=== PATIENT | female | born 1995 | race Two or more races ===

== ENCOUNTER → 2016-08-19 | Outpatient (CLI) | payer MEDICAID ==
--- NOTE | 2016-08-19 15:11 | US ---
"Ultrasound Obstetric Follow Up Indication: Small for dates. The estimated gestational age by LMP is 39 weeks and 6 days yielding a n EDC of August 20, 2016. Comparison: April 2016 Findings: Number: 1 Presentation: Vertex Placental Location: Posterior Cervix not visualized Amniotic MVP: 5 cm BIOMETRY: Biparietal Diameter: 94.31 mm 38 weeks, 6 days Head Circumference: 337.53 mm 38 weeks, 6 days Abdominal Circumference: 335.71 mm 37 weeks, 4 days Femur Length: 75.51 mm 38 weeks, 5 days Humerus Length: 65.46 mm 38 weeks, 0 days HC/AC: 1.01 (0.87-1.06) FL/BPD: 80% FL/AC: 22% Average Ultrasound Age: 38 weeks, 3 days EDC based on today's average ultrasound age: August 30, 2016 Estimated weight is 3369 gms +/- 492 gms. The estimated weight is at the 31 % based on pr evious dating. ANATOMY: Previous evaluated. FHR 130 bpm. Grade 3-4 placenta. Impression: 1. Living meneses in vertex presentation. 2. EFW 3369 g. 3. LMP weight percentile 31% 4. Please see above findings. A Call Requested message has been communicated to GERMAN Mckeon via the [employer] Result system on 08/19/2016 15:09, Message ID [id number]."
== END ==
LOC: FIMAGING 13:41
PROVIDERS: ATTEND Physician Assistant
DX: O36.5930 Maternal care for other known or suspected poor fetal growth, third trimester, not applicable or unspecified (principal); Z3A.39 39 weeks gestation of pregnancy

== ENCOUNTER 2016-11-14 15:49 | Emergency (ER) | payer MEDICAID ==
[2016-11-14 16:03] VITALS: RESP 16; O2SAT 97
--- NOTE | 2016-11-14 16:22 | EDPHY ---
H & P Time Seen by Provider: 11/14/16 16:12 HPI/ROS: CHIEF COMPLAINT: Chest pain. HISTORY OF PRESENT ILLNESS: The patient is a 21-year-old female who presents with constant chest pain since yesterday. The pain radiates to her right axillary region. She reports that she has had intermittent hemoptysis for 8 months but the pain is a new symptom. She has seen her PCP at [facility] for the hemoptysis but has had no tests or imaging done. She denies fever. She moved here from [facility] 14 months ago. Her grandfather has had tuberculosis but it is unclear if she has ever been exposed. History somewhat limited due to language barrier. REVIEW OF SYSTEMS: A complete 10-point review of systems was performed and is negative except for those items mentioned in the HPI. Past Medical/Surgical History: Denies. Social History: Nonsmoker, from [facility]. PCP: [facility] Smoking Status: Never smoked Physical Exam: General Appearance: Alert, no distress Eyes: Pupils equal and round, no conjunctival pallor or injection ENT, Mouth: Mucous membranes moist Neck: Normal inspection Respiratory: Lungs are clear to auscultation Cardiovascular: Regular rate and rhythm Gastrointestinal: Abdomen is soft and non-tender Neurological: A&O, nonfocal, normal gait Skin: Warm and dry, no rash Extremities: Nontender, no pedal edema Psychiatric: Mood and affect normal Constitutional: Initial Vital Signs Temperature (C) 36.3 C 11/14/16 16:01 Heart Rate 80 11/14/16 16:01 Respiratory Rate 16 11/14/16 16:01 Blood Pressure 103/66 11/14/16 16:01 O2 Sat (%) 97 11/14/16 16:01 O2 Delivery Mode Room Air Allergies/Adverse Reactions: No Known Allergies Allergy (Unverified 11/14/16 16:00) Home Medications: Medication Instructions Recorded NK [No Known Home Meds] 11/14/16 Medical Decision Making - Diagnostics EKG Interpretation: EKG interpreted by me reveals normal sinus rhythm, normal axis, normal intervals , ST and T segments normal. Interpretation: normal EKG Imaging Results: Imaging Impressions Chest X-Ray 11/14/16 16:12 Impression: Normal chest x-ray. Chest/Thorax CTA 11/14/16 17:48 Impression: 1. No evidence of pulmonary embolus using CT protocol. 2. Minimal right pleural effusion. Findings discussed with Amparo Arshad M.D. at 18:43 hour, 11/14/2016. Imaging: I viewed and interpreted images myself ED Course/Re-evaluation: 21-year-old otherwise healthy female presents with 8 months of intermittent hemoptysis and central chest pain that began yesterday and has been constant since. She denies fever. This patient moved from [facility] 14 months ago. She does admit a family history of tuberculosis in her grandfather but it is unclear if she was ever exposed. An IV was established and labs ordered. Chest x-ray ordered. I independently reviewed the patient's chest x-ray on the PACS system. My interpretation: no acute cardiopulmonary disease. Patient's d-dimer elevated at 0.62. Chest CT ordered. 1843: CT results conveyed to me by the radiologist as small pleural effusion. Please see Imaging results section for official report. She will be discharged with pulmonology follow up. Return to ED precautions were discussed with her. Differential Diagnosis: Differential diagnosis includes though it is not limited to pneumonia, pneumothorax, pulmonary embolism, aortic dissection, pericarditis, acute coronary syndrome. - Data Points Laboratory Results: Laboratory Results 11/14/16 16:45 11/14/16 16:45 11/14/16 11/14/16 11/14/16 16:45 16:45 16:45 WBC 6.65 10^3/uL 10^3/uL (3.80-9.50) RBC 4.26 10^6/uL 10^6/uL (4.18-5.33) Hgb 13.5 g/dL g/dL (12.6-16.3) Hct 36.9 % L % (38.0-47.0) MCV 86.6 fL fL (81.5-99.8) MCH 31.7 pg pg (27.9-34.1) MCHC 36.6 g/dL g/dL (32.4-36.7) RDW 12.2 % % (11.5-15.2) Plt Count 271 10^3/uL 10^3/uL (150-400) MPV 9.6 fL fL (8.7-11.7) Neut % (Auto) 41.6 % % (39.3-74.2) Lymph % (Auto) 46.5 % H % (15.0-45.0) [place] % (Auto) 9.0 % % (4.5-13.0) Eos % (Auto) 2.0 % % (0.6-7.6) Baso % (Auto) 0.6 % % (0.3-1.7) Nucleat RBC Rel Count 0.0 % % (0.0-0.2) Absolute Neuts (auto) 2.77 10^3/uL 10^3/uL (1.70-6.50) Absolute Lymphs (auto) 3.09 10^3/uL H 10^3/uL (1.00-3.00) Absolute Monos (auto) 0.60 10^3/uL 10^3/uL (0.30-0.80) Absolute Eos (auto) 0.13 10^3/uL 10^3/uL (0.03-0.40) Absolute Basos (auto) 0.04 10^3/uL 10^3/uL (0.02-0.10) Absolute Nucleated RBC 0.00 10^3/uL 10^3/uL (0-0.01) Immature Gran % 0.3 % % (0.0-1.1) Immature Gran # 0.02 10^3/uL 10^3/uL (0.00-0.10) D-Dimer 0.61 ug/mLFEU H ug/mLFEU (0.00-0.50) Sodium 139 mEq/L mEq/L (134-144) Potassium 4.2 mEq/L mEq/L (3.5-5.2) Chloride 108 mEq/L mEq/L (97-110) Carbon Dioxide 21 mEq/l L mEq/l (22-31) Anion Gap 10 mEq/L mEq/L (8-16) BUN 14 mg/dL mg/dL (7-23) Creatinine 0.7 mg/dL mg/dL (0.6-1.0) Estimated GFR > 60 Glucose 87 mg/dL mg/dL (70-100) Calcium 9.2 mg/dL mg/dL (8.5-10.4) Departure - Departure Disposition: Home, Routine, Self-Care Clinical Impression: Hemoptysis, Pleural effusion Condition: Good Instructions: Pleural Effusion (ED), Hemoptysis (ED) Additional Instructions: Call Dr. Villarreal, pulmonology, on Wednesday to set up a follow up appointment. Return to the ED if you develop fever, shortness of breath, have increased blood in your cough, or for any other serious worsening of condition. Referrals: Christina Vazquez PA [Primary Care Provider] - As per Instructions Sarkis Villarreal MD [Medical Doctor] - As per Instructions Report Scribed for: Amparo Arshad Report Scribed by: Kam Schwarz Date of Report: 11/14/16 Time of Report: 16:22 Physician Review and Approval Statement: 11/14/16 16:22 Portions of this note were transcribed by a medical staff physician. I personally performed a history, physical exam, medical decision making, and confirmed accuracy of information the transcribed note.
--- NOTE | 2016-11-14 16:47 | CPEKG ---
Heart Rate: 75 RR Interval: 800 P-R Interval: 156 QRSD Interval: 88 QT Interval: 396 QTC Interval: 443 P [place]: 8 QRS [place]: 34 T Wave [place]: 12 EKG Severity - NORMAL ECG - EKG Impression: SINUS RHYTHM Electronically Signed By: Amparo Arshad 14-Nov-2016 22:28:37
[2016-11-14 17:01] LABS: % IMMATURE GRANULYOCYTES 0.3 % (0.0-1.1); ABSOLUTE IMMATURE GRANULOCYTES 0.02 10^3/uL (0.00-0.10); ADD DIFF? NO; ADD MORPH? NO; ADD SCAN? NO; ATYPICAL LYMPHOCYTE FLAG 20 (0-99); FRAGMENT RBC FLAG 0 (0-99); HEMATOCRIT 36.9 % (38.0-47.0); HEMOGLOBIN 13.5 g/dL (12.6-16.3); LEFT SHIFT FLG 0 (0-99); LIPEMIA HEMOLYSIS FLAG 90 (0-99); MEAN CELL HEMOGLOBIN 31.7 pg (27.9-34.1); MEAN CELL HEMOGLOBIN CONCENTR. 36.6 g/dL (32.4-36.7); MEAN CELL VOLUME 86.6 fL (81.5-99.8); MEAN PLATELET VOLUME 9.6 fL (8.7-11.7); PLATELET CLUMPS FLAG 20 (0-99); PLATELET COUNT 271 10^3/uL (150-400); RED BLOOD CELL COUNT 4.26 10^6/uL (4.18-5.33); RED CELL DISTRIBUTION WIDTH 12.2 % (11.5-15.2)
[2016-11-14 17:25] LABS: ANION GAP 10 mEq/L (8-16); CALCIUM 9.2 mg/dL (8.5-10.4); CARBON DIOXIDE 21 mEq/l (22-31); CHLORIDE 108 mEq/L (97-110); CREATININE 0.7 mg/dL (0.6-1.0); GLOMERULAR FILTRATION RATE > 60; GLUCOSE 87 mg/dL (70-100); POTASSIUM 4.2 mEq/L (3.5-5.2); SODIUM 139 mEq/L (134-144)
[2016-11-14] MEDS ORDERED: IOPAMIDOL (ISOVUE 370) 100 ML BTL IV ONE (17:58)
[2016-11-14 19:05] VITALS: BP 106/63; PULSE 65; TEMP 98.1
== END 2016-11-14 19:03 | disposition home or self-care (01) ==
DX: R04.2 Hemoptysis (principal); J90 Pleural effusion, not elsewhere classified
CPT/HCPCS: Q9967